=== PATIENT | female | born 1960 | race Caucasian/White ===

== ENCOUNTER 2016-07-18 13:07 | Emergency (ER) | payer OTHER ==
[~2016-07-18] VITALS: Ht 170.2 cm; Wt 54.4 kg
[~2016-07-18 13:07] MED LIST: BUPR1TAB SL; VENL150C58 PO
--- NOTE | 2016-07-18 14:06 | NUR ---
Pt evaluated by MD in room 2B for R shoulder pain. A/O x 4, nad noted, vss; ambulates w/ steady gait. Patient discharged home in stable conditon. Written and verbal after care instructions given. Patient verbalizes understanding of instructions.
[2016-07-18 14:08] VITALS: BP 134/67
== END 2016-07-18 14:08 | disposition home or self-care (01) ==
LOC: ER 13:07
DX: S46.091A Other injury of muscle(s) and tendon(s) of the rotator cuff of right shoulder, initial encounter (principal); F19.10 Other psychoactive substance abuse, uncomplicated; Z88.8 Allergy status to other drugs, medicaments and biological substances; X58.XXXA Exposure to other specified factors, initial encounter; Y93.89 Activity, other specified; Y99.8 Other external cause status; Y92.89 Other specified places as the place of occurrence of the external cause
CPT/HCPCS: A4663

== ENCOUNTER 2017-08-01 15:03 | Emergency (ER) | payer OTHER ==
[~2017-08-01] VITALS: Ht 170.2 cm; Wt 65.8 kg
[2017-08-01] MEDS ORDERED: GABA600T2 PO (15:13)
[2017-08-01] MEDS ORDERED: DULO20CA PO (15:13)
--- NOTE | 2017-08-01 15:21 | NUR ---
Dr Gonzales at the bedside for MSE.
[2017-08-01] MEDS: MORPHINE SULFATE 2 MG/1 ML DISP.SYRIN IV ONE (15:26)
[2017-08-01] MEDS: ONDANSETRON 4 MG/2 ML VIAL IV ONE (15:28)
[2017-08-01] MEDS ORDERED: MORPHINE SULFATE 4 MG/1 ML DISP.SYRIN ONE (15:39)
[2017-08-01] MEDS ORDERED: ONDANSETRON 4 MG/2 ML VIAL ONE (15:39)
[2017-08-01 15:40] LABS: BASOPHILS % (AUTO) 0.7 % (0.0-2.0); EOSINOPHILS # (AUTO) 0.2 K/uL (0.0-0.7); EOSINOPHILS % (AUTO) 3.3 % (0.0-7.0); HEMATOCRIT 40.6 % (31.2-41.9); LYMPHOCYTES # (AUTO) 1.1 K/uL (20.0-40.0); LYMPHOCYTES % (AUTO) 20.5 % (20.5-51.5); MEAN CORPUSCULAR HEMOGLOBIN 31.6 uug (24.7-32.8); MEAN CORPUSCULAR HGB CONC 34 g/dL (32.3-35.6); MEAN CORPUSCULAR VOLUME 91.6 fL (75.5-95.3); MONOCYTES # (AUTO) 0.6 K/uL (2.0-10.0); MONOCYTES % (AUTO) 11.5 % (0.0-11.0); NEUTROPHILS # (AUTO) 3.4 K/uL (1.8-8.9); PLATELET COUNT (AUTO) 220 K/uL (179-408); RED BLOOD CELL COUNT(AUTO) 4.43 MIL/uL (3.63-4.92); WHITE BLOOD COUNT (AUTO) 5.4 K/uL (3.8-11.8)
[2017-08-01] MEDS: IV NORMAL SALINE 1000 ML BAG IV ONE (15:44)
--- NOTE | 2017-08-01 15:45 | NUR ---
Pt signed consent for IV contrast.
[2017-08-01 15:47] LABS: CREATININE 0.8 mg/dL (0.6-1.3); POTASSIUM 4.1 mmol/L (3.5-5.1)
[2017-08-01 15:53] LABS: BILIRUBIN,DIRECT 0.1 mg/dL (0.0-0.2); BILIRUBIN,TOTAL 0.4 mg/dL (0.2-1.0)
[2017-08-01] MEDS ORDERED: IV NORMAL SALINE 100 ML ONE (16:00)
[2017-08-01] MEDS ORDERED: SWABABLE VALVE TRANSFER SET EA MC ONE (16:00)
[2017-08-01] MEDS ORDERED: IOHEXOL 300MG/ML 100 ML INFUS..BTL ONE (16:00)
[2017-08-01] MEDS ORDERED: NORMAL SALINE FLUSH 10 ML DISP.SYRIN ONE (16:00)
--- NOTE | 2017-08-01 16:13 | NUR ---
Pt out of ER for CT.
--- NOTE | 2017-08-01 17:08 | NUR ---
IV removed. Catheter intact and site benign. Pressure and 4x4 gauze applied to site. No bleeding noted.
[2017-08-01 17:13] VITALS: BP 104/70
--- NOTE | 2017-08-01 17:14 | NUR ---
Patient discharged to home in stable conditon. Written and verbal after care instructions given. Patient verbalizes understanding of instructions.
== END 2017-08-01 17:14 | disposition home or self-care (01) ==
LOC: ER 15:05
DX: R10.12 Left upper quadrant pain (principal); R19.7 Diarrhea, unspecified; Z88.8 Allergy status to other drugs, medicaments and biological substances; Z79.899 Other long term (current) drug therapy
CPT/HCPCS: 36415; 74177; 80048; 80076; 83690; 84484; 85025; 93005; 96361; 96374; 96375; 99285; A4663; J2270; J2405; J3490 ×2; Q9967; 70030-TC

== ENCOUNTER 2019-02-28 15:41 | Emergency (ER) | END 2019-02-28 16:54 | disposition home or self-care (01) | DX: B02.9 Zoster without complications (principal); Z88.8 Allergy status to other drugs, medicaments and biological substances; Z79.899 Other long term (current) drug therapy ==

== ENCOUNTER 2019-03-02 16:57 | Emergency (ER) | END 2019-03-02 18:03 | disposition home or self-care (01) | DX: T49.0X1A Poisoning by local antifungal, anti-infective and anti-inflammatory drugs, accidental (unintentional), initial encounter (principal); T20.57XA Corrosion of first degree of neck, initial encounter; Z88.8 Allergy status to other drugs, medicaments and biological substances; Z79.899 Other long term (current) drug therapy; Y93.89 Activity, other specified; Y92.89 Other specified places as the place of occurrence of the external cause; Y99.8 Other external cause status ==

== ENCOUNTER 2020-10-28 10:33 | Emergency (ER) | payer OTHER ==
[~2020-10-28] VITALS: Ht 170.2 cm; Wt 52.2 kg
[~2020-10-28 10:33] MED LIST changes: -BUPR1TAB SL; +DULO20CA PO; +GABA600T12 PO; -VENL150C58 PO
--- NOTE | 2020-10-28 11:08 | NUR ---
at bedside for assessment
--- NOTE | 2020-10-28 11:23 | NUR ---
Radiology noted at bedside x-ray
--- NOTE | 2020-10-28 11:54 | NUR ---
Patient discharged to home in stable condition. Right foot wrapped in nicolas wrap and surgical shoe applied. Written and verbal after care instructions given. Patient verbalizes understanding of instructions. Stressed follow up or return to ER for worsening s/s.
[2020-10-28 11:56] VITALS: BP 108/73
== END 2020-10-28 11:50 | disposition home or self-care (01) ==
LOC: ER 10:33
DX: S91.331A Puncture wound without foreign body, right foot, initial encounter (principal); W54.0XXA Bitten by dog, initial encounter; Y93.9 Activity, unspecified; Y99.8 Other external cause status; F43.10 Post-traumatic stress disorder, unspecified; Z88.8 Allergy status to other drugs, medicaments and biological substances
CPT/HCPCS: 73630; A4663

== ENCOUNTER 2021-04-04 16:39 | Inpatient (IN) | payer OTHER ==
[~2021-04-04] VITALS: Ht 170.2 cm; Wt 52.2 kg
[2021-04-04 17:08] LABS: HEMATOCRIT 37.8 % (31.2-41.9); MEAN CORPUSCULAR HEMOGLOBIN 31.3 uug (24.7-32.8); MEAN CORPUSCULAR VOLUME 92.6 fL (75.5-95.3); PLATELET COUNT (AUTO) 172 K/uL (179-408)
[2021-04-04 17:15] LABS: CREATININE 0.8 mg/dL (0.6-1.3); POTASSIUM 3.8 mmol/L (3.5-5.1)
--- NOTE | 2021-04-04 17:17 | NUR ---
KENYATTA PLUMMER TALKING TO DR. STEWART OVER THE PHONE REGARDING THE PT.
[2021-04-04 17:20] LABS: BILIRUBIN,DIRECT 0.1 mg/dL (0.0-0.2); BILIRUBIN,TOTAL 0.3 mg/dL (0.2-1.0); TOTAL PROTEIN, SERUM 6.8 g/dL (6.4-8.2)
[2021-04-04] MEDS ORDERED: IV NORMAL SALINE 1000 ML BAG IV ONE (18:30)
[2021-04-04] MEDS ORDERED: MORPHINE SULFATE 2 MG/1 ML DISP.SYRIN IV ONE (18:30)
[2021-04-04] MEDS ORDERED: ONDANSETRON 4 MG/2 ML VIAL IV ONE ×2 (18:30→23:00)
[2021-04-04] MEDS ORDERED: SWABABLE VALVE TRANSFER SET EA MC ONE (18:42)
[2021-04-04] MEDS ORDERED: IOHEXOL 350 100 ML INFUS..BTL ONE (18:42)
[2021-04-04] MEDS ORDERED: IV NORMAL SALINE 250 ML IV ONE (18:42)
[2021-04-04] MEDS ORDERED: DIPHENOXYLATE HCL/ATROP SULF TABLET PO ONE ×2 (18:45→23:00)
[2021-04-04] MEDS ORDERED: DIPHENOXYLATE HCL/ATROP SULF TABLET ONE ×3 (18:54→23:12)
[2021-04-04 19:01] LABS: *BILIRUBIN,URIN NEGATIVE (NEGATIVE); *BLOOD, URINE NEGATIVE (NEGATIVE); *CLARITY,URINE CLEAR (CLEAR); *COLOR,URINE YELLOW (YELLOW); *KETONES,URINE NEGATIVE (NEGATIVE); *UROBILINOGEN,URINE 0.2 E.U./dl (NORMAL); LEUKOCYTE ESTERASE ,URINE NEGATIVE (NEGATIVE); NITRITE, URINE NEGATIVE (NEGATIVE); UGLUCOSE NEGATIVE (NEGATIVE)
[2021-04-04] MEDS ORDERED: MORPHINE SULFATE 2 MG/1 ML DISP.SYRIN ONE (19:01)
[2021-04-04] MEDS ORDERED: ONDANSETRON 4 MG/2 ML VIAL ONE ×2 (19:01→23:12)
[2021-04-04] MEDS ORDERED: GABA-532 PO ×2 (19:06)
[2021-04-04] MEDS ORDERED: DULO20CA PO (19:06)
[2021-04-04] MEDS ORDERED: TRAZ-257 PO (19:06)
[2021-04-04] MEDS ORDERED: TRAM50TA2 PO (19:06)
[2021-04-04] MEDS ORDERED: PIPERACILLIN SODIUM/TAZOBACTAM 3.375 G in IV DEXTROSE 5% 50 ML IV ONE (20:00)
[2021-04-04] MEDS ORDERED: HYDROMORPHONE 1 MG/1 ML DISP.SYRIN IV ONE ×2 (20:15→23:00)
[2021-04-04] MEDS ORDERED: PIPERACILLIN/TAZOBACTAM/D5W 50 ML IV ONE (20:21)
[2021-04-04] MEDS ORDERED: HYDROMORPHONE 1 MG/1 ML DISP.SYRIN ONE ×2 (20:28→23:12)
--- NOTE | 2021-04-04 20:53 | NUR ---
Dr Perez on the call with Dr Crowell.
--- NOTE | 2021-04-04 22:44 | NUR ---
Dr Perez counter person for surgery consult with Dr Jack Israel
--- NOTE | 2021-04-04 22:49 | NUR ---
Epic panel call placed will get a hold of Dr. Urbina for admitting.
--- NOTE | 2021-04-04 23:00 | NUR ---
Dr. Perez on panel call with Dr. Urbina. Patient accepted for admission to [facility] unit. Dx. Appendicitis.
[2021-04-04] MEDS ORDERED: GABAPENTIN 300 MG CAPSULE PO ONE (23:15)
[2021-04-04] MEDS ORDERED: GABAPENTIN 300 MG CAPSULE ONE ×3 (23:25→23:53)
[2021-04-04] MEDS ORDERED: TRAZODONE 50 MG TABLET PO ONE (23:30)
[2021-04-04] MEDS ORDERED: GABAPENTIN 400 MG CAPSULE PO ONE (23:30)
[2021-04-04] MEDS ORDERED: TRAZODONE 100 MG TABLET ONE (23:30)
[2021-04-04] MEDS ORDERED: ACETAMINOPHEN 650 MG SUPP.RECT RC PRN (23:45)
[2021-04-04] MEDS ORDERED: IV D5/ 0.9% NACL 1,000 ML IV PRN (23:45)
[2021-04-05] MEDS: ONDANSETRON 4 MG/2 ML VIAL IV PRN (03:41)
[2021-04-05] MEDS ORDERED: ONDANSETRON 4 MG/2 ML VIAL ONE (03:47)
[2021-04-05] MEDS ORDERED: PIPERACILLIN/TAZOBACTAM/D5W 50 ML IV ONE ×2 (05:03→14:27)
--- NOTE | 2021-04-05 05:55 | NUR ---
Patient asleep at this time. In no acute distress. Afebrile. Denies any pain at this time. NPO status. IV site on left AC intact and patent. IVF infusing. No adverse effect noted from IV antibiotic. Dilaudid 1mg everry 4 hours PRN given for pain and Zofran 4mg vai IV PRN given for nausea and efective. Needs assessed and attended to. Safety measure maintained.
[2021-04-05] MEDS ORDERED: PIPERACILLIN SODIUM/TAZOBACTAM 3.375 G in IV DEXTROSE 5% 50 ML IV SCH (06:00)
[2021-04-05 06:07] LABS: HEMATOCRIT 34.9 % (31.2-41.9); MEAN CORPUSCULAR HEMOGLOBIN 31.4 uug (24.7-32.8); PLATELET COUNT (AUTO) 149 K/uL (179-408)
[2021-04-05 06:27] LABS: BILIRUBIN,TOTAL 0.2 mg/dL (0.2-1.0); CREATININE 0.8 mg/dL (0.6-1.3); TOTAL PROTEIN, SERUM 6.1 g/dL (6.4-8.2)
[2021-04-05 06:38] LABS: PHOSPHOROUS 4.6 mg/dL (2.5-4.9)
[2021-04-05] MEDS: IV D5/ 0.9% NACL 1,000 ML IV PRN ×2 (08:00→22:30)
[2021-04-05] MEDS: HYDROMORPHONE 1 MG/1 ML DISP.SYRIN IV PRN (08:17)
[2021-04-05] MEDS ORDERED: HYDROMORPHONE 1 MG/1 ML DISP.SYRIN ONE (08:21)
[2021-04-05] MEDS: PANTOPRAZOLE SODIUM 40 MG VIAL IV SCH (08:37)
[2021-04-05] MEDS ORDERED: PANTOPRAZOLE SODIUM 40 MG VIAL ONE (08:41)
[2021-04-05] MEDS ORDERED: PANTOPRAZOLE SODIUM IV 40 MG in IV DEXTROSE 5% 100 ML IV SCH (09:00)
--- NOTE | 2021-04-05 09:22 | NUR ---
Patient is resting comfortably in bed with eyes closed, NAD noted. Called surgery re paula martino for pt, none at this time.
--- NOTE | 2021-04-05 10:01 | NUR ---
Carmen Hooks Hatchery Supervisor about the bedside for surgery consult. Per order pt is no longer NPO.
--- NOTE | 2021-04-05 10:03 | NUR ---
Ice chip given to Pt, denies N/V.
[2021-04-05] MEDS: ACETAMINOPHEN 325 MG TABLET PO PRN ×2 (10:20→16:30)
--- NOTE | 2021-04-05 10:20 | NUR ---
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
[2021-04-05] MEDS ORDERED: ACETAMINOPHEN 325 MG TABLET ONE ×2 (10:27→16:37)
--- NOTE | 2021-04-05 10:30 | NUR ---
Pt able to tolorate PO intake, denies N/V/D.
--- NOTE | 2021-04-05 11:41 | NUR ---
Patient is resting comfortably in bed with eyes closed, NAD noted.
[2021-04-05] MEDS: PIPERACILLIN SODIUM/TAZOBACTAM 3.375 G in IV DEXTROSE 5% 100 ML IV SCH ×2 (14:24→22:29)
[2021-04-05] MEDS: methylPREDNISolone SOD SUCC 40 MG/ML VIAL IV SCH ×2 (16:09→22:29)
[2021-04-05] MEDS ORDERED: methylPREDNISolone SOD SUCC 40 MG/ML VIAL ONE (16:18)
[2021-04-05] MEDS ORDERED: GABAPENTIN 300 MG CAPSULE PO SCH (18:00)
[2021-04-05] MEDS ORDERED: GABAPENTIN 300 MG CAPSULE ONE (18:43)
--- NOTE | 2021-04-05 20:47 | NUR ---
Pt. admitted to Med/Surg Room 301A, under care of Dr. El. Dx: Appendicitis Belongs List completed
[2021-04-05] MEDS: TRAZODONE 100 MG TABLET PO SCH (20:58)
[2021-04-05] MEDS ORDERED: TRAZODONE 100 MG TABLET ONE (21:05)
[2021-04-05 21:10] VITALS: BP 105/69
--- NOTE | 2021-04-05 21:10 | NUR ---
ADMITTED PATIENT ON TELE FLOOR UNDER THE CARE OF MELINDA MUÑIZ REGULATOR MECHANIC. PATIENT ALERT ORIENTED, NO SOB NO CHEST PAIN, PATIENT HAS DIARRHEA WEAR DIAPER , PATIENT CONTINENT ALSO ASSISTED WITH TOILETING. CONT TO MONITOR.
--- NOTE | 2021-04-05 21:16 | NUR ---
Patient transferred to Room 301A. Vital signs stable. All belongings with patient.
--- NOTE | 2021-04-06 00:11 | NUR ---
PATIENT REQUESTING HER NEUROTIN DOSE AT NIGHT. NOTIFY [facility] PATIENT REQUEST WITH ORDERS.
[2021-04-06] MEDS: GABAPENTIN 300 MG CAPSULE PO SCH ×2 (00:52→21:00)
[2021-04-06 04:00] VITALS: BP 101/59
[2021-04-06] MEDS: PIPERACILLIN SODIUM/TAZOBACTAM 3.375 G in IV DEXTROSE 5% 100 ML IV SCH ×3 (05:52→22:00)
[2021-04-06] MEDS: methylPREDNISolone SOD SUCC 40 MG/ML VIAL IV SCH ×3 (05:53→22:00)
[2021-04-06] MEDS: HYDROMORPHONE 1 MG/1 ML DISP.SYRIN IV PRN (06:17)
[2021-04-06 07:06] LABS: HEMATOCRIT 35.1 % (31.2-41.9); MEAN CORPUSCULAR HEMOGLOBIN 31.3 uug (24.7-32.8); PLATELET COUNT (AUTO) 163 K/uL (179-408)
--- NOTE | 2021-04-06 07:13 | NUR ---
PATIENT ALERT ORIENTED, NO SOB NO CHEST PAIN, HAD 2 LBM AND URINE IN BATHROOM WITH ASSIST, COMPLAIN OF ABDOMINAL PAIN MEDICATED ORDERED. NO VOMITING NOTED, CONT ON FULL LIQUID DIET, CONT TO MONITOR.
[2021-04-06 07:29] LABS: CREATININE 0.8 mg/dL (0.6-1.3); MAGNESIUM 1.9 mg/dL (1.8-2.4); PHOSPHOROUS 3.1 mg/dL (2.5-4.9); POTASSIUM 3.9 mmol/L (3.5-5.1)
[2021-04-06] MEDS ORDERED: GABAPENTIN 300 MG CAPSULE PO SCH (09:00)
[2021-04-06] MEDS ORDERED: GABAPENTIN 100 MG CAPSULE PO SCH (09:00)
[2021-04-06] MEDS: PANTOPRAZOLE SODIUM 40 MG VIAL IV SCH (09:47)
[2021-04-06] MEDS: TRAMADOL HCL 50 MG TABLET PO SCH (09:48)
[2021-04-06] MEDS: DULOXETINE 20 MG CAPSULE.DR PO SCH (09:52)
[2021-04-06] MEDS ORDERED: REMEDY ESSENTIAL ZINC PASTE 113 GM TOP PRN (11:30)
--- NOTE | 2021-04-06 11:40 | NUR ---
Patient is alert, oriented x 4, not in any form of distress, on room air. Due medications administered and tolerated well. Assisted patient to the bathroom and patient stated this is her third time having diarrhea this morning. Patient seen by Dr. Valentin, update given to MD with new orders.
[2021-04-06 11:57] VITALS: BP 128/77
[2021-04-06] MEDS: IV D5/ 0.9% NACL 1,000 ML IV PRN (12:54)
[2021-04-06 16:13] VITALS: BP 117/54
[2021-04-06 20:52] VITALS: BP 119/60
[2021-04-06] MEDS: TRAZODONE 100 MG TABLET PO SCH (21:00)
[2021-04-07 04:48] VITALS: BP 122/71
[2021-04-07] MEDS: methylPREDNISolone SOD SUCC 40 MG/ML VIAL IV SCH ×3 (06:33→21:04)
[2021-04-07] MEDS: PIPERACILLIN SODIUM/TAZOBACTAM 3.375 G in IV DEXTROSE 5% 100 ML IV SCH ×3 (06:33→21:04)
[2021-04-07 06:49] LABS: HEMATOCRIT 35.1 % (31.2-41.9); MEAN CORPUSCULAR HEMOGLOBIN 31.3 uug (24.7-32.8); MEAN CORPUSCULAR VOLUME 93.1 fL (75.5-95.3); PLATELET COUNT (AUTO) 151 K/uL (179-408)
[2021-04-07 07:22] LABS: CREATININE 0.7 mg/dL (0.6-1.3); PHOSPHOROUS 3.4 mg/dL (2.5-4.9); POTASSIUM 3.7 mmol/L (3.5-5.1)
[2021-04-07] MEDS: DULOXETINE 20 MG CAPSULE.DR PO SCH (08:07)
[2021-04-07] MEDS: TRAMADOL HCL 50 MG TABLET PO SCH (08:08)
[2021-04-07] MEDS: PANTOPRAZOLE SODIUM 40 MG VIAL IV SCH (08:23)
[2021-04-07] MEDS: ONDANSETRON 4 MG/2 ML VIAL IV PRN (09:17)
[2021-04-07 12:00] VITALS: BP 130/78
[2021-04-07] MEDS: GABAPENTIN 300 MG CAPSULE PO SCH ×2 (12:02→20:16)
[2021-04-07] MEDS: HYDROMORPHONE 1 MG/1 ML DISP.SYRIN IV PRN (12:27)
[2021-04-07] MEDS: ENSURE CLEAR 240 ML LIQUID (MIX BERRY) PO SCH ×2 (13:09→17:01)
[2021-04-07] MEDS: IV D5/ 0.9% NACL 1,000 ML IV PRN (14:25)
[2021-04-07 16:00] VITALS: BP 114/77
[2021-04-07 20:00] VITALS: BP 134/72
[2021-04-07] MEDS: LOPERAMIDE HCL 2 MG CAPSULE PO PRN (20:16)
[2021-04-07] MEDS: ACETAMINOPHEN 325 MG TABLET PO PRN (20:36)
[2021-04-07] MEDS: TRAZODONE 100 MG TABLET PO SCH (20:36)
[2021-04-08] MEDS: IV D5/ 0.9% NACL 1,000 ML IV PRN ×2 (03:28→15:17)
[2021-04-08 04:00] VITALS: BP 118/61
[2021-04-08] MEDS: PIPERACILLIN SODIUM/TAZOBACTAM 3.375 G in IV DEXTROSE 5% 100 ML IV SCH ×3 (05:08→21:06)
[2021-04-08] MEDS: methylPREDNISolone SOD SUCC 40 MG/ML VIAL IV SCH ×3 (05:08→21:06)
[2021-04-08 06:32] LABS: HEMATOCRIT 35.3 % (31.2-41.9); MEAN CORPUSCULAR HEMOGLOBIN 31.7 uug (24.7-32.8); MEAN CORPUSCULAR VOLUME 93.6 fL (75.5-95.3); PLATELET COUNT (AUTO) 162 K/uL (179-408)
[2021-04-08 06:58] LABS: CREATININE 0.7 mg/dL (0.6-1.3); MAGNESIUM 2.3 mg/dL (1.8-2.4); PHOSPHOROUS 3.5 mg/dL (2.5-4.9); POTASSIUM 3.6 mmol/L (3.5-5.1)
--- NOTE | 2021-04-08 07:00 | NUR ---
Patient is alert, oriented x 4, not in any form of distress, on room air Assisted patient to the bathroom and having diarrhea this morning. call light with in reach
[2021-04-08] MEDS: TRAMADOL HCL 50 MG TABLET PO SCH (08:08)
[2021-04-08] MEDS: DULOXETINE 20 MG CAPSULE.DR PO SCH (08:08)
[2021-04-08] MEDS: ENSURE CLEAR 240 ML LIQUID (MIX BERRY) PO SCH ×3 (08:09→16:40)
[2021-04-08] MEDS: PANTOPRAZOLE SODIUM 40 MG VIAL IV SCH (08:23)
[2021-04-08] MEDS: LOPERAMIDE HCL 2 MG CAPSULE PO PRN ×2 (10:52→17:16)
[2021-04-08] MEDS: GABAPENTIN 300 MG CAPSULE PO SCH ×2 (11:14→20:00)
[2021-04-08 12:17] VITALS: BP 133/71
--- NOTE | 2021-04-08 14:00 | NUR ---
Patient is resting comfortably in bed with eyes closed, NAD noted. call light with in reach seen by dr michaud
[2021-04-08] MEDS: HYDROMORPHONE 1 MG/1 ML DISP.SYRIN IV PRN (16:36)
[2021-04-08 16:39] VITALS: BP 146/77
[2021-04-08] MEDS: ONDANSETRON 4 MG/2 ML VIAL IV PRN (17:22)
[2021-04-08] MEDS: TRAZODONE 100 MG TABLET PO SCH (20:00)
--- NOTE | 2021-04-08 20:40 | NUR ---
Patient is resting comfortably in bed with eyes closed, NAD noted.
[2021-04-09] MEDS: methylPREDNISolone SOD SUCC 40 MG/ML VIAL IV SCH ×2 (05:42→13:03)
[2021-04-09] MEDS: PIPERACILLIN SODIUM/TAZOBACTAM 3.375 G in IV DEXTROSE 5% 100 ML IV SCH ×2 (05:42→13:03)
[2021-04-09 06:06] VITALS: BP 99/48
[2021-04-09] MEDS ORDERED: PANTOPRAZOLE SODIUM 40 MG TABLET.DR PO SCH (07:00)
[2021-04-09] MEDS: TRAMADOL HCL 50 MG TABLET PO SCH (08:10)
[2021-04-09] MEDS: ENSURE CLEAR 240 ML LIQUID (MIX BERRY) PO SCH ×3 (08:11→17:26)
[2021-04-09] MEDS: DULOXETINE 20 MG CAPSULE.DR PO SCH (08:11)
[2021-04-09 12:04] VITALS: BP 150/74
[2021-04-09] MEDS ORDERED: AMOX1TAB16 PO (12:52)
[2021-04-09] MEDS: GABAPENTIN 300 MG CAPSULE PO SCH (13:02)
[2021-04-09] MEDS: ONDANSETRON 4 MG/2 ML VIAL IV PRN (13:20)
[2021-04-09] MEDS: HYDROMORPHONE 1 MG/1 ML DISP.SYRIN IV PRN (13:21)
[2021-04-09] MEDS: IV D5/ 0.9% NACL 1,000 ML IV PRN (13:22)
[2021-04-09] MEDS ORDERED: PANT40TA2 PO (13:30)
[2021-04-09 16:21] VITALS: BP 156/75
--- NOTE | 2021-04-09 18:15 | NUR ---
patient discharged home, picked up by family, patient father and brother, stable condition, alert, oriented x4, no sob, resp even nonlabored,skin warm and dry to touch, belongings accounted and signed, patient own medication returned to patient, ambulatory, self care, IV removed, ID removed. escorted patient on wheelchair to the car safely.
[2021-04-09] MEDS ORDERED: AMOXICILLIN-CLAVUL 875-125MG TABLET PO SCH (21:00)
== END 2021-04-09 17:15 | disposition home or self-care (01) | DRG 249 ==
LOC: ER 16:40 → TRANSITION 04-05 00:13 → MEDSURG3 04-05 20:56
PROVIDERS: ADMIT Student in an Organized Health Care Education/Training Program; ATTEND Student in an Organized Health Care Education/Training Program
DX: K52.9 Noninfective gastroenteritis and colitis, unspecified (principal); D69.6 Thrombocytopenia, unspecified; I31.3 Pericardial effusion (noninflammatory); E44.1 Mild protein-calorie malnutrition; D70.9 Neutropenia, unspecified; J90 Pleural effusion, not elsewhere classified; B02.9 Zoster without complications; F43.10 Post-traumatic stress disorder, unspecified; Z68.1 Body mass index [BMI] 19.9 or less, adult; Z87.828 Personal history of other (healed) physical injury and trauma; Z82.49 Family history of ischemic heart disease and other diseases of the circulatory system; Z83.3 Family history of diabetes mellitus; Z20.822 Contact with and (suspected) exposure to COVID-19
CPT/HCPCS: 36415; 82533; 83605; 83690; 83735; 84100; 85025; 86625; 87040; 87046; 97161; A4663; C9113; G0378; J1170; J2270; J2405; J2543; J2920; J7030; J7042; J7050; J7060; Q9967

== ENCOUNTER 2021-08-06 13:46 | Emergency (ER) | payer OTHER ==
[~2021-08-06] VITALS: Ht 170.2 cm; Wt 52.2 kg
[~2021-08-06 13:46] MED LIST changes: +AMOX1TAB16 PO; +GABA-532 PO; -GABA600T12 PO; +PANT40TA2 PO; +TRAM50TA2 PO; +TRAZ-257 PO
--- NOTE | 2021-08-06 14:00 | NUR ---
MD at bedside, medical screeening exam in progress.
[2021-08-06] MEDS ORDERED: NAPR-1164 PO (14:37)
[2021-08-06] MEDS ORDERED: KETOROLAC TROMETHAMINE 30 MG INJ ONE (14:40)
[2021-08-06] MEDS ORDERED: KETOROLAC TROMETHAMINE 30 MG INJ IM ONE (14:45)
--- NOTE | 2021-08-06 14:46 | NUR ---
Patient discharged to home in stable condition. Written and verbal after care instructions given. Patient verbalizes understanding of instructions. Stressed follow up or return to ER for worsening s/s.
[2021-08-06 14:49] VITALS: BP 124/80
== END 2021-08-06 14:50 | disposition home or self-care (01) ==
LOC: ER 13:47
DX: G89.29 Other chronic pain (principal); M25.512 Pain in left shoulder; M25.511 Pain in right shoulder; Z76.0 Encounter for issue of repeat prescription
CPT/HCPCS: 96372; 99283; J1885; A4663

== ENCOUNTER 2022-10-11 15:18 | Emergency (ER) | payer OTHER ==
[~2022-10-11] VITALS: Ht 170.2 cm; Wt 53.5 kg
[~2022-10-11 15:18] MED LIST changes: -AMOX1TAB16 PO; +NAPR-1164 PO; -PANT40TA2 PO
[2022-10-11] MEDS ORDERED: IV NORMAL SALINE 1000 ML BAG IV ONE (15:45)
[2022-10-11] MEDS ORDERED: ONDANSETRON 4 MG/2 ML VIAL IV ONE (15:45)
[2022-10-11] MEDS ORDERED: ONDANSETRON 4 MG/2 ML VIAL ONE (15:45)
[2022-10-11 15:59] LABS: BASOPHILS % (AUTO) 0.8 % (0.0-2.0); CALCIUM 9.4 mg/dL (8.5-10.1); CREATININE 0.8 mg/dL (0.6-1.3); EOSINOPHILS % (AUTO) 0.7 % (0.0-7.0); HEMATOCRIT 41.1 % (31.2-41.9); HEMOGLOBIN 13.8 g/dL (10.9-14.3); LYMPHOCYTES % (AUTO) 18.4 % (20.5-51.5); MEAN CORPUSCULAR HEMOGLOBIN 30.9 uug (24.7-32.8); MEAN CORPUSCULAR HGB CONC 34 g/dL (32.3-35.6); MEAN CORPUSCULAR VOLUME 91.8 fL (75.5-95.3); MONOCYTES # (AUTO) 0.3 K/uL (0.1-1.30); MONOCYTES % (AUTO) 5.9 % (0.0-11.0); NEUTROPHILS # (AUTO) 3.8 K/uL (1.8-8.9); NEUTROPHILS % (AUTO) 74.2 % (38.5-71.5); PLATELET COUNT (AUTO) 235 K/uL (179-408); POTASSIUM 3.9 mmol/L (3.5-5.1); RED BLOOD CELL COUNT(AUTO) 4.48 MIL/uL (3.63-4.92); RED CELL DISTRIBUTION WIDTH 13.1 % (12.3-17.7); WHITE BLOOD COUNT (AUTO) 5.2 K/uL (3.8-11.8)
[2022-10-11 16:03] LABS: DIFFERENTIAL COMMENT 1
[2022-10-11 16:09] LABS: ALBUMIN 4.1 g/dL (3.4-5.0); BILIRUBIN,DIRECT 0.1 mg/dL (0.0-0.2); BILIRUBIN,TOTAL 0.3 mg/dL (0.2-1.0); TOTAL PROTEIN, SERUM 7.4 g/dL (6.4-8.2)
[2022-10-11] MEDS ORDERED: KETOROLAC TROMETHAMINE 30 MG INJ ONE (16:15)
[2022-10-11] MEDS ORDERED: KETOROLAC TROMETHAMINE 30 MG INJ IVP ONE (16:15)
[2022-10-11] MEDS ORDERED: IOHEXOL 300MG/ML 100 ML INFUS..BTL ONE (16:17)
[2022-10-11] MEDS ORDERED: IV NORMAL SALINE 250 ML IV ONE (16:17)
[2022-10-11] MEDS ORDERED: SWABABLE VALVE TRANSFER SET EA MC ONE (16:17)
[2022-10-11] MEDS ORDERED: MORPHINE SULFATE 4 MG/1 ML DISP.SYRIN ONE (16:28)
[2022-10-11] MEDS ORDERED: MORPHINE SULFATE 2 MG/1 ML DISP.SYRIN IV ONE (16:30)
[2022-10-11 17:06] LABS: *BILIRUBIN,URIN NEGATIVE (NEGATIVE); *BLOOD, URINE NEGATIVE (NEGATIVE); *CLARITY,URINE CLEAR (CLEAR); *COLOR,URINE YELLOW (YELLOW); *KETONES,URINE NEGATIVE (NEGATIVE); *PROTEIN,URINE NEGATIVE (NEGATIVE); *UROBILINOGEN,URINE 0.2 E.U./dl (NORMAL); LEUKOCYTE ESTERASE ,URINE NEGATIVE (NEGATIVE); NITRITE, URINE NEGATIVE (NEGATIVE); UGLUCOSE NEGATIVE (NEGATIVE)
[2022-10-11] MEDS ORDERED: DICY10CA13 PO (17:22)
[2022-10-11] MEDS ORDERED: DIPH1TAB PO (17:22)
[2022-10-11 17:54] VITALS: BP 117/66; O2SAT 99
== END 2022-10-11 17:55 | disposition home or self-care (01) ==
LOC: ER 15:18
DX: K52.9 Noninfective gastroenteritis and colitis, unspecified (principal); Z88.8 Allergy status to other drugs, medicaments and biological substances; Z79.2 Long term (current) use of antibiotics; Z79.899 Other long term (current) drug therapy
CPT/HCPCS: 99285; 74177; 96374; 96375; 96361; 80076; 80048; 81003; 83690; 85025; 36415; J1885; J2405; Q9967; J2270; J7040; A4663